=== PATIENT | male | born 1930 | race Caucasian/White ===

== ENCOUNTER → 2016-08-21 | Outpatient (CLI) | payer OTHER | LOC: BMCIMAGING 11:38 | PROVIDERS: ATTEND Internal Medicine | DX: J44.9 Chronic obstructive pulmonary disease, unspecified (principal) ==

== ENCOUNTER → 2017-04-26 | Outpatient (CLI) | payer OTHER | LOC: FIMAGING 07:11 | PROVIDERS: ATTEND Internal Medicine | DX: G31.9 Degenerative disease of nervous system, unspecified (principal); R90.82 White matter disease, unspecified ==

== ENCOUNTER → 2017-06-12 | Outpatient (CLI) | payer OTHER ==
--- NOTE | 2017-06-19 07:17 | CPEEG ---
[f rep st] ELECTROENCEPHALOGRAM 4-HOUR VIDEO ELECTROENCEPHALOGRAM. DATE OF STUDY: 06/12/2017 DATE OF INTERPRETATION: 06/18/2017. INTERPRETATION: This 4-hour video EEG recording is normal. There were no potentially epileptogenic abnormalities present during the awake or sleep recordings. During the video EEG monitoring session, the patient did not have any clinical events. REPORT: This 4-hour video EEG contains 10 Hz alpha activity over the posterior head regions. There was no abnormal activation at rest, during photic stimulation, or hyperventilation. The patient astrid me drowsy and fell into sustained sleep during the study. There was no abnormal activation during dr owsiness, sleep, or during times of arousal. There were no clinical events during the video EEG kerri toring session. /[id number]/MODL
== END ==
LOC: FCPNEURO 07:42
PROVIDERS: ATTEND Psychiatry & Neurology Neurology
DX: R41.3 Other amnesia (principal)

== ENCOUNTER → 2017-12-28 | Outpatient (CLI) | payer OTHER | LOC: FLAB 16:20 → FIMAGING 16:42 | PROVIDERS: ATTEND Internal Medicine | DX: M79.89 Other specified soft tissue disorders (principal) ==